=== PATIENT | female | born 1935 | race Caucasian/White ===

== ENCOUNTER 2023-02-13 12:10 | Emergency (ER) | payer MEDICARE ==
[~2023-02-13] VITALS: Ht 152.4 cm; Wt 73.8 kg
--- OUTSIDE RECORDS SUMMARY | ~2023-02-13 | XMS | Continuity of Care Document ---
Demographics + + + | Address | [facility] [address] | | | [place] [address] | + + + | Preferred Language | Unknown | + + + | Marital Status | | + + + | Jainism Affiliation | Unknown | + + + | Race | White | + + + | Ethnic Group | Unknown | + + + Author + + + | Author | [facility] | + + + | Organization | [facility] | + + + | Address | [address] | | | [place] [address] | + + + | Phone | | + + + Care Team Providers + + + + | Care Poultry Trimmer Name | Role | Phone | + + + + Unavailable | Unavailable | + + + + Allergies No information. Encounters No information. Functional Status No information. Immunizations No information. Medications No information. Problems + + + + | date | description | facility | + + + + | 2023-02-11 18:11 | TYPE 2 DIABETES MELLITUS W | [facility] | | | DIABETIC CHRONIC KIDNEY | | + + + + | 2023-02-11 18:11 | HYPERLIPIDEMIA, | [facility] | | | UNSPECIFIED | | + + + + | 2023-02-11 18:11 | [facility] | [facility] | | | ELSWHR,UNSP SEV,W/O | | | | BEH/PSYC | | + + + + | 2023-02-11 18:11 | ALZHEIMER'S DISEASE, | [facility] | | | UNSPECIFIED | | + + + + | 2023-02-11 18:11 | HYPERTENSIVE CHRONIC | [facility] | | | KIDNEY DISEASE W STG | | | | 1-4/UNSP | | + + + + | 2023-02-11 18:11 | HYPERTENSIVE URGENCY | [facility] | + + + + | 2023-02-11 18:11 | GASTRO-ESOPHAGEAL REFLUX | [facility] | | | DISEASE WITHOUT ESOPHAGIT | | + + + + | 2023-02-11 18:11 | 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 Results/Labs No information. Social History +--------+ + + | date | description | facility | +--------+ + + Vital Signs No information."
--- OUTSIDE RECORDS SUMMARY | ~2023-02-13 | XMS | Continuity of Care Document ---
Demographics + + + | Address | [facility] [address] [address] | | | [place] [address] | + + + | Preferred Language | Unknown | + + + | Marital Status | | + + + | Yarsanism Affiliation | Unknown | + + + | Race | White | + + + | Ethnic Group | Unknown | + + + Author + + + | Author | [facility] | + + + | Organization | [facility] | + + + | Address | [address] | | | [place] [address] | + + + | Phone | | + + + Care Team Providers + + + + | Care Mortgage Protection Sales Name | Role | Phone | + [...] + | 2023-02-11 18:11 | [facility] | [facility] | | | [...] + + | 2023-02-11 18:11 | 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
[~2023-02-13 12:10] MED LIST: BUSPIRONE HCL15 MG PO; CITALOPRAM HBR10 MG PO; ESTRADIOL0.5 MG PO; HYDROCHLOROTHIA25 MG PO; LOSARTAN POTAS100 MG PO; OMEPRAZOLE20 MG PO; POTASSIUM CHLO10 ME2 PO; RIVASTIGMINE3 MG PO; SIMVASTATIN20 MG PO
--- OUTSIDE RECORDS SUMMARY | 2023-02-13 12:20 | XMS ---
PreManage Notification: AMIE SANABRIA [employer] Events No recent Security Events currently on file CRITERIA MET - [facility] - 2 Visits in 30 Days CARE PROVIDERS ROSA DE LEON Internal Medicine Current BAL PHONE: Unknown JONATAN RAHMAN Internal Medicine: Geriatric Medicine Current PHONE: Unknown Jim has no Care Guidelines for this patient. Maria Del Carmen VISIT COUNT (12 MO.) 2 [facility] TOTAL 2 NOTE: Visits indicate total known visits. ED/UCC VISIT TRACKING (12 MO.) 02/13/2023 12:12 [facility] TYPE: Emergency COMPLAINT: - HIGH BLOOD PRESSURE 02/11/2023 18:11 [facility] [place] TYPE: Emergency COMPLAINT: - BLOOD PRESSURE PROBLEM DIAGNOSES: - Allergy status to narcotic agent - Allergy status to other antibiotic agents - Allergy status to sulfonamides - Alzheimer's disease, unspecified - Chronic kidney disease, stage 3 unspecified - Dementia in other diseases classified elsewhere, unspecified severity, without behavioral disturbance, psychotic disturbance, mood disturbance, and anxiety - Gastro-esophageal reflux disease without esophagitis - Hyperlipidemia, unspecified - Hypertensive chronic kidney disease with stage 1 through stage 4 chronic kidney disease, or unspecified chronic kidney disease - Hypertensive urgency - Other longterm (current) drug therapy - Type 2 diabetes mellitus with diabetic chronic kidney disease INPATIENT VISIT TRACKING (12 MO.) No inpatient visits to display in this time frame [email or web address]
[2023-02-13 13:32] LABS: BASOPHILS 0.6 % (0-2); EOSINOPHILS 1.4 % (0-6); HEMATOCRIT 41.7 % (35.0-50.0); HEMOGLOBIN 13.8 g/dL (12.0-18.0); LYMPHOCYTES 34.7 % (24-44); MCH 32.8 (27-36); MCHC 33.1 g/dl (30-36); MONOCYTES 6.6 % (0-12); NEUTROPHILS 56.7 % (39-80); PLATELET COUNT 184 K/uL (140-440); RBC 4.21 M/ul (4.3-5.7); RDW 13.7 (10.5-15.0)
[2023-02-13 13:49] LABS: ALBUMIN 3.5 g/dL (3.4-5.0); ALBUMIN/GLOBULIN RATIO 0.92 (1.1-2.4); ANION GAP 13.7 (7-21); BILIRUBIN, TOTAL 0.6 ng/dL (0.2-1.0); BUN/CREATININE RATIO 12.28 (6.0-28.6); CALCIUM 9.5 mg/dL (8.5-10.1); CREATININE, SERUM 1.14 mg/dL (0.55-1.02); POTASSIUM 3.7 mmol/L (3.5-5.1); PROTEIN, TOTAL 7.3 g/dL (6.4-8.2)
[2023-02-13] MEDS ORDERED: NORVASC5 MG PO (14:43)
[2023-02-13 15:10] VITALS: BP 186/78
== END 2023-02-13 15:10 | disposition home or self-care (01) ==
LOC: ED 12:10
PROVIDERS: Emergency Medicine
DX: I12.9 Hypertensive chronic kidney disease with stage 1 through stage 4 chronic kidney disease, or unspecified chronic kidney disease (principal); E11.22 Type 2 diabetes mellitus with diabetic chronic kidney disease; N18.30 Chronic kidney disease, stage 3 unspecified; K21.9 Gastro-esophageal reflux disease without esophagitis; E78.5 Hyperlipidemia, unspecified; Z88.2 Allergy status to sulfonamides; Z88.5 Allergy status to narcotic agent; Z88.8 Allergy status to other drugs, medicaments and biological substances; Z79.899 Other long term (current) drug therapy
CPT/HCPCS: 36415; 70450; 80053; 85025; 99284-25

== ENCOUNTER 2024-07-22 04:43 | Emergency (ER) | payer OTHER, MEDICARE ==
[~2024-07-22] VITALS: Ht 152.4 cm; Wt 78.0 kg
[~2024-07-22 04:43] MED LIST changes: +NORVASC5 MG PO
[2024-07-22] MEDS ORDERED: TRAMADOL HCL 50 MG HOME.PACK PO ONE (05:00)
[2024-07-22] MEDS ORDERED: ACETAMINOPHEN 325 MG TAB PO ONE (05:00)
[2024-07-22] MEDS ORDERED: TRAMADOL HCL 50 MG TAB PO ONE (05:00)
[2024-07-22] MEDS ORDERED: MORPHINE SULFATE 10 MG/ML VIAL IM ONE (06:00)
[2024-07-22] MEDS ORDERED: ONDANSETRON 4 MG TAB ODT SL ONE (06:00)
[2024-07-22 06:47] VITALS: BP 179/65
== END 2024-07-22 08:20 | disposition home or self-care (01) ==
LOC: ED 04:43
DX: S01.81XA Laceration without foreign body of other part of head, initial encounter (principal); E11.22 Type 2 diabetes mellitus with diabetic chronic kidney disease; I12.9 Hypertensive chronic kidney disease with stage 1 through stage 4 chronic kidney disease, or unspecified chronic kidney disease; N18.30 Chronic kidney disease, stage 3 unspecified; E78.5 Hyperlipidemia, unspecified; K21.9 Gastro-esophageal reflux disease without esophagitis; Z88.2 Allergy status to sulfonamides; Z88.5 Allergy status to narcotic agent; Z88.1 Allergy status to other antibiotic agents; Z79.899 Other long term (current) drug therapy; W01.190A Fall on same level from slipping, tripping and stumbling with subsequent striking against furniture, initial encounter
CPT/HCPCS: 12014; 70450; 99283-25; A9270